=== PATIENT | female | born 1985 | race American Indian/Alaskan Native ===

== ENCOUNTER 2017-12-22 01:13 | Emergency (ER) | payer OTHER ==
[2017-12-22 01:44] VITALS: BP 129/69; PULSE 67; TEMP 99.2; BMI 27.9
--- NOTE | 2017-12-22 02:09 | PDOC ---
History of Present Illness - History of Present Illness Initial Comments: 12/22/17 02:43 Pt is a 32 y/o lady who recently underwent an uncomplicated at approximately 41 weeks gestation w/ an episiotomy. Pt presents this morning to [facility] c/o increased blood pressure as well as hemorrhoids. Pt endorses that she was feeling ill and uneasy which prompted her to measure her BP (150's/90's) . Pt states that her hemorrhoids are extremely painful, 10/10 in severity, partially alleviated w/ standing and have been present for 5 days. Pt states that she never experienced hemorrhoids in the past. Denies cp, sob, fever, chills, numbness, or tingling. <Ciro Lopez - Last Filed: 12/22/17 07:07> <Kaitlyn Owens - Last Filed: 12/22/17 23:36> - General Chief Complaint: Blood Pressure Problem Stated Complaint: HIGH BLOOD PRESSURE Time Seen by Provider: 12/22/17 01:42 Past History - Past Medical History Asthma: No Cancer: No Cardiac Disorders: No COPD: No Diabetes: Yes HTN: No Seizures: No Thyroid Disease: No - Reproductive History (#): 1 Para: 0 - Suicide/Smoking/Psychosocial Hx Smoking History: Never smoked Have you smoked in the past 12 months: No Information on smoking cessation initiated: No Hx Alcohol Use: No Drug/Substance Use Hx: No Substance Use Type: None Hx Substance Use Treatment: No <Ciro Lopez - Last Filed: 12/22/17 07:07> <Kaitlyn Owens - Last Filed: 12/22/17 23:36> - Past Medical History Allergies/Adverse Reactions: Allergies Allergy/AdvReac Type Severity Reaction Status Date / Time No Known Allergies Allergy Verified 12/15/17 08:53 Home Medications: Ambulatory Orders Vits96/Iron Fum/Folic [ Tablet] 1 each PO DAILY 12/13/17 Acetaminophen [Tylenol .Regular Strength -] 650 mg PO Q3H PRN tablet 12/16/17 Benzocaine [Americaine 20% Kaplan -] 1 spray TP DAILY PRN bottle 12/16/17 Ferrous Sulfate [Feosol] 325 mg PO DAILY #60 tab-cap 12/16/17 Ibuprofen [Motrin -] 600 mg PO Q4H PRN #20 tablet 12/16/17 Vitamins (Sjr) - 1 tab PO DAILY tablet 12/16/17 Sennosides/Docusate Sodium [Pericolace -] 2 tablet PO HS PRN #60 tablet Witch Estefany 50% (Tucks) [Tucks Pads -] 1 pad TP DAILY PRN pad 12/16/17 Cephalexin [Keflex] 500 mg PO BID 7 Days #14 capsule 12/22/17 Oxycodone HCl 5 mg PO Q6H PRN 3 Days #12 tablet MDD 4 12/22/17 Sennosides/Docusate Sodium [Pericolace -] 2 each PO BID #10 tablet 12/22/17 *Physical Exam - Vital Signs Last Vital Signs Temp Pulse Resp BP Pulse Ox 99.2 F 67 18 129/69 100 12/22/17 01:15 12/22/17 01:15 12/22/17 01:15 12/22/17 01:15 12/22/17 01:15 - Physical Exam Comments: 12/22/17 03:29 GEN- NADF, AAOx3 CV- RRR No MRG S1 S2 RS- CTA B/L ABD- Soft, NT, ND, No HSM Rectum- Perirectal external thrombosed hemorrhoids, pink. Ext- No CCE --Episiotomy Dehisence <Ciro Lopez - Last Filed: 12/22/17 07:07> - Vital Signs Last Vital Signs Temp Pulse Resp BP Pulse Ox 99.2 F 67 18 129/69 100 12/22/17 01:15 12/22/17 01:15 12/22/17 01:15 12/22/17 01:15 12/22/17 01:15 <Kaityln Owens - Last Filed: 12/22/17 23:36> Procedures - Incision and Drainage I&D Site: Bilateral: Perirectal (Incision of Hemmorhoids) Anesthesia: 1% Lidocaine (I and D of Hemmorhoids.) <Ciro Lopez - Last Filed: 12/22/17 07:07> ED Treatment Course - LABORATORY CBC & Chemistry Diagram: 12/22/17 02:53 12/22/17 02:53 <Ciro Lopez - Last Filed: 12/22/17 07:07> - LABORATORY CBC & Chemistry Diagram: 12/22/17 02:53 12/22/17 02:53 - ADDITIONAL ORDERS Additional order review: 12/22/17 02:53 RBC 3.53 L MCV 91.2 MCHC 33.5 RDW 14.6 MPV 6.6 L Neutrophils % 65.3 Lymphocytes % 25.7 D Monocytes % 6.7 Eosinophils % 1.8 D Basophils % 0.5 - Medications Given in the ED: ED Medications Discontinued Medications Generic Name Dose Route Start Last Admin Trade Name Adrian PRN Reason Stop Dose Admin Ibuprofen 600 mg 12/22/17 02:16 12/22/17 02:54 Motrin - PO 12/22/17 02:17 600 mg ONCE ONE Administration Lidocaine HCl 0 applic 12/22/17 02:29 12/22/17 03:15 Xylocaine 2% Jelly TP 12/22/17 02:30 1 applic ONCE ONE Administration Protocol Lidocaine HCl 0 ml 12/22/17 02:36 12/22/17 03:16 Xylocaine 1% SQ 12/22/17 02:37 5 ml ONCE ONE Administration Protocol Morphine Sulfate 4 mg 12/22/17 02:29 12/22/17 04:13 Morphine Injection - IM 12/22/17 02:30 Not Given ONCE ONE Oxycodone HCl 10 mg 12/22/17 02:17 12/22/17 02:55 Roxicodone - PO 12/22/17 02:18 10 mg ONCE ONE Administration <Kaitlyn Owens - Last Filed: 12/22/17 23:36> Medical Decision Making - Medical Decision Making 32 Y/O lady who recently underwent an uncomplicated at approximately 41 weeks gestation w/ an episiotomy. Pt presents this morning to [facility] c/o increased blood pressure as well as hemorrhoids. Pt endorses that she was feeling ill and uneasy which prompted her to measure her BP (150's/90's). Pt states that her hemorrhoids are extremely painful, 10/10 in severity, partially alleviated w/ standing and have been present for 5 days. 12/22/17 02:41 Pt seen and examined in ED. Pt has multiple external hemorrhoids. Ldocaine Jelly, Lidocaine SQ injection IM 4 mg Morphine 12/22/17 03:26 Lidocaine jelly applied to pt's rectum, waiting 25 minutes Lidocaine 1% local given. 12/22/17 05:28 Incision and Drainage of Hemorrhoids performed with Dr Yashira Owens. -Urine culture reveals 3+ L. Esterase, Keflex 500 mg BID x 7 Days -Oxycodone for severe Pain, Corinne-Colace stool softener -F/U Dr [place] [employer] for Episiotomy dehisence -G.I Referral for External thrombosed hemorrhoids -No Protein in urine, R/O Pre-eclampsia <Ciro Lopez - Last Filed: 12/22/17 07:07> *DC/Admit/Observation/Transfer - Discharge Dispostion Decision to Admit order: No <Ciro Lopez - Last Filed: 12/22/17 07:07> <Kaitlyn Owens - Last Filed: 12/22/17 23:36> Diagnosis at time of Disposition: Bleeding external hemorrhoids, Episiotomy dehiscence, Post-term - Discharge Dispostion Disposition: HOME Condition at time of disposition: Good - Prescriptions Prescriptions: Cephalexin [Keflex] 500 mg PO BID 7 Days #14 capsule Oxycodone HCl 5 mg PO Q6H PRN 3 Days #12 tablet MDD 4 PRN Reason: Pain Level 4 - 6 Sennosides/Docusate Sodium [Pericolace -] 2 each PO BID #10 tablet - Referrals Referrals: Koby Guillen DO [Staff Physician] - Sinai Casarez MD [Staff Physician] - - Patient Instructions Printed Discharge Instructions: DI for High Blood Pressure
[2017-12-22] MEDS ORDERED: IBUPROFEN 600 MG TABLET (FP) PO ONE ×2 (02:16→02:21)
[2017-12-22] MEDS ORDERED: oxyCODONE HCL 5 MG TABLET PO ONE (02:17)
[2017-12-22] MEDS ORDERED: oxyCODONE HCL 5 MG TABLET ONE (02:21)
[2017-12-22] MEDS ORDERED: morphine CARPU-JECT 4 MG/1 ML DISP.SYRIN IM ONE (02:29)
[2017-12-22] MEDS ORDERED: LIDOCAINE HCL 2% JELLY (30 ML/TUBE) TP ONE (02:29)
[2017-12-22] MEDS ORDERED: LIDOCAINE HCL 1%, 10 MG/ML (50 mL VIAL) SQ ONE (02:36)
--- NOTE | 2017-12-22 02:41 | PDOC ---
Attending Attestation - Resident Resident Name: Ciro Lopez - ED Attending Attestation I have performed the following: I have examined & evaluated the patient, The case was reviewed & discussed with the resident, I agree w/resident's findings & plan - HPI HPI: 12/22/17 02:55 32 YOF presenting with rectal pain and hemorrrhoids x 5 days, s/p 12/17/17 uncomplicated delivery, episiotomy stitches placed. today worse pain, worse with sitting, BP measured 150/90s at home, prompting her to come to the ED. - Physicial Exam PE: 12/22/17 02:56 In mild distress 2/2 pain, MMM, nl conjunctiva, anicteric; neck supple. lungs clear, RRR, abdomen soft nontender. perirectal external thrombosed hemorrhoids, soft and very tender to palpation, pink and normal color. No peripheral edema. normal color for ethnicity, WWP. exam with midline episiotomy site suture dehiscence, no active bleeding. deferred internal exam. 12/22/17 05:06 - Medical Decision Making 12/22/17 02:56 32 YOF presenting with rectal pain and hemorrrhoids x 5 days, s/p 12/17/17 uncomplicated delivery, episiotomy stitches placed. today worse rectal pain, worse with sitting, BP measured 150/90s at home, prompting her to come to the ED. +notes small amount of VB, with passage of episiotomy sutures in the toilet earlier. no AP, fever or chills, or abnormal malodorous discharge. VS with mild hypertension, but in pain. DDx. preeclampsia, UTI, VB, hemorrhoidal bleeding basic labs and lytes, Cr, LFTs normal. UA with UTI, WBCs, and RBCs present, will treat with keflex x 1 week no protein in urine, BP improving. clinically not supportive of preeclampsia given she has acute pain contributing to mild elevation in BP. bedside excision of 2 large soft hemorrhoids, topical and inj lidocaine, with blood expelled, pain improved. exam with dehiscence of episiotomy, but no active bleeding or saturation of pads f/u Dr. Casarez as outpatient GI referral for hemorrhoid management, Dr Castellanos. instructions on sitz baths 3-4X per day, topical analgesia, stool softener/ laxative with oxycodone (PRN severe pain), may use OTC tylenol/motrin PRN mild to moderate pain. constipation prevention and bleeding precautions. Pt to be discharged in stable condition. Patient and family made aware of impression and plan, return precautions discussed (including but not limited to worsening pain or symptoms), fevers, or signs of infection, chest pain, respiratory distress, inability to tolerate oral intake, dehydration, syncope, or neurologic changes). Follow up with PMD and/or specialist as recommended, follow up information provided, take medications as instructed for duration of time. continue with supportive care, avoid triggers and precipitants. All questions answered to patient's satisfaction and expressed understanding and comfort with this. 12/22/17 05:02
[2017-12-22 03:01] LABS: BASO % 0.5 % (0-2.0); EOS % 1.8 % (0-4.5); HEMATOCRIT 32.2 % (32.4-45.2); HEMOGLOBIN 10.8 GM/dL (10.7-15.3); LYMPH % 25.7 % (8-40); MCH 30.5 pg (25.7-33.7); MCHC 33.5 g/dl (32.0-36.0); MEAN CELL VOLUME 91.2 fl (80-96); MEAN PLT VOLUME 6.6 fl (7.5-11.1); MONO % 6.7 % (3.8-10.2); NEUT % 65.3 % (42.8-82.8); PLATELET COUNT 256 K/MM3 (134-434); RBC 3.53 M/mm3 (3.60-5.2); RDW 14.6 % (11.6-15.6); WHITE BLOOD COUNT 8.8 K/mm3 (4.0-10.0)
[2017-12-22] MEDS ORDERED: LIDOCAINE HCL 2% JELLY 10 ML CARTRIDGE ONE (03:14)
[2017-12-22] MEDS ORDERED: LIDOCAINE HCL/PF 1% SDV 5ML VIAL ONE (03:14)
[2017-12-22 03:27] LABS: ALBUMIN 2.6 g/dl (3.4-5.0); ANION GAP 9 MMOL/L (8-16); BLOOD UREA NITROGEN 12 mg/dL (7-18); CHLORIDE 106 mmol/L (98-107); CO2 27 mmol/L (21-32); CREATININE 0.7 mg/dL (0.55-1.02); GLUCOSE,RANDOM 96 mg/dL (74-106); POTASSIUM 4.3 mmol/L (3.5-5.1); SGOT/AST 50 U/L (15-37); SGPT/ALT 70 U/L (12-78); SODIUM 142 mmol/L (136-145)
[2017-12-22 03:29] LABS: ALK PHOS 112 U/L (45-117); BILIRUBIN,TOTAL 0.4 mg/dL (0.2-1.0); TOT PROT 6.3 g/dl (6.4-8.2)
[2017-12-22 03:40] LABS: URINE APPEARANCE CLOUDY; URINE BILIRUBIN NEGATIVE (<2.0 mg/dL); URINE COLOR LTYELLOW; URINE GLUCOSE (UA) NEGATIVE (NEGATIVE); URINE KETONE NEGATIVE (NEGATIVE); URINE NITRITE NEGATIVE (NEGATIVE); URINE PROTEIN NEGATIVE (NEGATIVE); URINE UROBILINOGEN NEGATIVE mg/dL (0.2-1.0)
[2017-12-22 03:45] LABS: URINE LEUK ESTERASE 3+ (NEGATIVE)
[2017-12-22 03:47] LABS: EPI CELLS RARE /HPF (FEW); URINE BACTERIA RARE /hpf (NONE SEEN); URINE MUCUS RARE
== END 2017-12-22 05:12 | disposition home or self-care (01) ==
LOC: JER 01:13
PROC: 069Y0ZZ Drainage of Lower Vein, Open Approach (ICD-10-PCS; principal; 2017-12-22)
DX: O90.89 Other complications of the puerperium, not elsewhere classified (principal); O90.1 Disruption of perineal obstetric wound; O87.2 Hemorrhoids in the puerperium
CPT/HCPCS: 36415; 46083; 80053; 81003; 81015; 85025; 87086; 99281-25

== ENCOUNTER 2024-02-17 15:05 | Inpatient (IN) | payer OTHER ==
[2024-02-17] MEDS ORDERED: AMPICILLIN SODIUM 2 GM VIAL ONE (16:24)
[2024-02-17] MEDS: LACTATED RINGERS SOLUTION 1,000 ML/1,000 ML INFUS.BAG IV SCH (17:00)
[2024-02-17] MEDS: AMPICILLIN - 2 GM in SODIUM CHLORIDE 100 ML IVPB ONE (17:00)
[2024-02-17 17:56] VITALS: BMI 37.0
[2024-02-17 18:28] LABS: BASO % 0.2 % (0-2.0); EOS % 0.2 % (0-4.5); HEMATOCRIT 40.6 % (32.4-45.2); HEMOGLOBIN 13.4 GM/dL (10.7-15.3); LYMPH % 20.3 % (8-40); MCH 29.4 pg (25.7-33.7); MEAN CELL VOLUME 89.2 fl (80-96); MEAN PLT VOLUME 7.2 fl (7.5-11.1); MONO % 4.4 % (3.8-10.2); NEUT % 74.9 % (42.8-82.8); PLATELET COUNT 204 10^3/uL (134-434); RBC 4.56 M/mm3 (3.60-5.2); RDW 15.8 % (11.6-15.6); WHITE BLOOD COUNT 11.9 K/mm3 (4.0-10.0)
[2024-02-17 18:46] LABS: INR 0.91 (0.83-1.09); PROTHROMBIN TIME (PATIENT) 10.3 SEC (9.7-13.0)
[2024-02-17 18:49] LABS: ACTIVATED PTT 26.8 SECONDS (25.2-36.5); POTASSIUM 4.3 mmol/L (3.5-5.1)
[2024-02-17 18:51] LABS: BLOOD UREA NITROGEN 10.5 mg/dL (7-18)
[2024-02-17] MEDS ORDERED: FENTANYL/BUPIVACAINE/NS/PF - PCEA - 50 ML DISP.SYRIN EP ONE (18:53)
[2024-02-17 18:54] LABS: CREATININE 0.6 mg/dL (0.55-1.3)
[2024-02-17] MEDS ORDERED: NALOXONE HCL 0.4 MG/ML VIAL IVPUSH PRN (18:57)
[2024-02-17] MEDS: ELECTROLYTE-148 SOLN 1,000 ML IV SCH (19:00)
[2024-02-17] MEDS ORDERED: BUPIVACAINE HCL/PF 0.25% (2.5MG/ML) 10 ML VIAL ONE (19:07)
[2024-02-17] MEDS ORDERED: FENTANYL CITRATE/PF 50 MCG/ML VIAL ONE (19:07)
[2024-02-17] MEDS: FENTANYL/BUPIVACAINE/NS/PF - PCEA - 50 ML DISP.SYRIN EP SCH (19:25)
[2024-02-17] MEDS ORDERED: OXYTOCIN 20 UNITS in 0.9% NS 20 UNIT/1,000 ML INFUS.BAG IV ONE (19:36)
[2024-02-17] MEDS ORDERED: LIDOCAINE HCL 1% PRESERVATIVE FREE - 30ML VIAL ONE (19:36)
[2024-02-17] MEDS: AMPICILLIN - 1 GM in SODIUM CHLORIDE 100 ML IVPB SCH (20:35)
[2024-02-17] MEDS ORDERED: AMPICILLIN SODIUM 1 GM VIAL ONE (20:41)
[2024-02-17] MEDS: OXYTOCIN 20 UNITS in 0.9% NS 20 UNIT/1,000 ML INFUS.BAG IV SCH (23:00)
[2024-02-17] MEDS ORDERED: BENZOCAINE 28 GM HEMORRHOIDAL OINTMENT TP PRN (23:16)
[2024-02-17] MEDS ORDERED: ACETAMINOPHEN 325 MG TABLET (FP) PO PRN (23:16)
[2024-02-17] MEDS ORDERED: WITCH HAZEL 50% (TUCKS) 40 PAD/JAR PAD TP PRN (23:16)
[2024-02-17] MEDS ORDERED: METHYLERGONOVINE MALEATE 0.2 MG/1 ML AMP IM PRN (23:16)
[2024-02-17] MEDS ORDERED: BISACODYL 10 MG SUPP.RECT RC PRN (23:16)
[2024-02-17 23:31] LABS: CORD BASE EXCESS -3.2 mmol/L (0-2); CORD HCO3 24.3 mmHg (20-29); CORD PCO2 53.5 mmHg (30-78); CORD pH 7.275 (7.14-7.44)
[2024-02-17 23:34] LABS: CORD HCO3 21.2 mmHg (20-29); CORD PCO2 35.6 mmHg (30-78); CORD pH 7.393 (7.14-7.44)
[2024-02-18] MEDS: oxyCODONE HCL 5 MG TABLET PO PRN (02:49)
[2024-02-18] MEDS: IBUPROFEN 600 MG TABLET (FP) PO PRN (04:41)
[2024-02-18 05:52] VITALS: RESP 18
[2024-02-18 08:34] LABS: BASO % 0.2 % (0-2.0); EOS % 0.1 % (0-4.5); HEMATOCRIT 32.3 % (32.4-45.2); HEMOGLOBIN 10.9 GM/dL (10.7-15.3); LYMPH % 16.7 % (8-40); MCH 30.1 pg (25.7-33.7); MCHC 33.7 g/dl (32.0-36.0); MEAN CELL VOLUME 89.2 fl (80-96); MEAN PLT VOLUME 7.8 fl (7.5-11.1); MONO % 5.7 % (3.8-10.2); NEUT % 77.3 % (42.8-82.8); PLATELET COUNT 182 10^3/uL (134-434); RBC 3.62 M/mm3 (3.60-5.2); RDW 15.7 % (11.6-15.6); WHITE BLOOD COUNT 13.7 K/mm3 (4.0-10.0)
[2024-02-18] MEDS: PRENATAL VITAMINS W/ FOLIC ACID TABLET (FP) PO SCH (09:33)
[2024-02-18] MEDS: BENZOCAINE 20% 57 GM BOTTLE TP PRN (18:30)
[2024-02-18] MEDS ORDERED: SENNOSIDES/DOCUSATE COMBO (SENNA PLUS) TABLET (UD) PO PRN (22:00)
[2024-02-19 10:28] VITALS: BP 117/68; PULSE 82; TEMP 98.8
[2024-02-19] MEDS ORDERED: diphenhydrAMINE HCL 25 MG CAPSULE (FP) PO SCH (22:00)
== END 2024-02-19 17:40 | disposition home or self-care (01) | DRG 560 ==
LOC: JDEL 15:05 → JLDR 16:30 → J3W 02-18 02:05
PROVIDERS: ADMIT Obstetrics & Gynecology; ATTEND Obstetrics & Gynecology
PROC: 10E0XZZ Delivery of Products of Conception, External Approach (ICD-10-PCS; principal; 2024-02-17)
PROC: 0KQM0ZZ Repair Perineum Muscle, Open Approach (ICD-10-PCS; 2024-02-17)
DX: O24.429 Gestational diabetes mellitus in childbirth, unspecified control (principal); O70.1 Second degree perineal laceration during delivery; Z3A.39 39 weeks gestation of pregnancy; Z37.0 Single live birth
CPT/HCPCS: 36415; 36600; 59025; 59409; 80048; 82803; 82962; 85025; 85610; 85730; 86780; 86850; 86900; 86901

== ENCOUNTER 2024-02-22 04:20 | Emergency (ER) | payer OTHER ==
[2024-02-22] MEDS ORDERED: ACETAMINOPHEN 325 MG TABLET (FP) ONE (04:53)
[2024-02-22 05:03] VITALS: BMI 35.6
[2024-02-22] MEDS: ACETAMINOPHEN 325 MG TABLET (FP) PO ONE (05:07)
[2024-02-22 05:23] LABS: BASO % 0.6 % (0-2.0); EOS % 2.1 % (0-4.5); HEMATOCRIT 34.7 % (32.4-45.2); HEMOGLOBIN 11.4 GM/dL (10.7-15.3); LYMPH % 18.9 % (8-40); MCH 29.9 pg (25.7-33.7); MEAN CELL VOLUME 90.6 fl (80-96); MEAN PLT VOLUME 6.9 fl (7.5-11.1); MONO % 4.6 % (3.8-10.2); NEUT % 73.8 % (42.8-82.8); PLATELET COUNT 234 10^3/uL (134-434); RBC 3.83 M/mm3 (3.60-5.2); WHITE BLOOD COUNT 10.9 K/mm3 (4.0-10.0)
[2024-02-22 05:30] LABS: EPI CELLS 27 /uL (0-25.1); HYALINE CASTS 0 /uL (0-3.1); PH,URINE 7.5 (5.0-8.0); URINE APPEARANCE CLEAR; URINE BACTERIA 99 /uL (0-1359); URINE BILIRUBIN NEGATIVE (NEGATIVE); URINE COLOR YELLOW; URINE GLUCOSE (UA) NEGATIVE (NEGATIVE); URINE KETONE NEGATIVE (NEGATIVE); URINE LEUK ESTERASE 2+ (NEGATIVE); URINE NITRITE NEGATIVE (NEGATIVE); URINE PROTEIN NEGATIVE (NEGATIVE); URINE RBC 150 /uL (0-23.9); URINE UROBILINOGEN 0.2 mg/dL (0.2-1.0); URINE WBC 104 /uL (0-25.8)
[2024-02-22 05:54] LABS: CALCIUM 8.2 mg/dL (8.5-10.1)
[2024-02-22 05:55] LABS: ALBUMIN 2.5 g/dl (3.4-5.0); MAGNESIUM 1.8 mg/dL (1.8-2.4)
[2024-02-22 05:58] LABS: CREATININE 0.6 mg/dL (0.55-1.3)
[2024-02-22 05:59] LABS: BILIRUBIN,TOTAL 0.2 mg/dL (0.2-1)
[2024-02-22 06:00] LABS: TOT PROT 6.2 g/dl (6.4-8.2)
[2024-02-22 06:16] VITALS: BP 143/89; PULSE 72; RESP 16; TEMP 98
== END 2024-02-22 06:25 | disposition home or self-care (01) ==
LOC: JER 04:20
DX: O90.89 Other complications of the puerperium, not elsewhere classified (principal); R03.0 Elevated blood-pressure reading, without diagnosis of hypertension; R51.9 Headache, unspecified
CPT/HCPCS: 36415; 80053; 81003; 83735; 85025; 87086; 93005; 93010; 99284-25